=== PATIENT | male | born 1990 | race Caucasian/White ===

== ENCOUNTER → 2021-01-08 | Outpatient (CLI) | payer OTHER ==
[~2021-01-08] MED LIST: ASCO100018 PO; CHOL20002 PO; GLUC15006 PO; METH500C3 PO; MULT-658 PO; OMEG1CAP23 PO; ROSU5TAB PO; ZINC50CA PO
== END | disposition home or self-care (01) ==
LOC: STAR 07:51
PROVIDERS: ATTEND Otolaryngology
DX: Z20.822 Contact with and (suspected) exposure to COVID-19 (principal); H71.92 Unspecified cholesteatoma, left ear
CPT/HCPCS: U0003; U0005

== ENCOUNTER 2021-01-14 08:29 | Day surgery (SDC) | payer OTHER ==
[~2021-01-14] VITALS: Ht 185.4 cm; Wt 112.5 kg
[~2021-01-14 08:29] MED LIST changes: +BACITRACIN OINT 500U/GM, 15 GM ONE; +CIPROFLOXACIN DEXAMETHASONE EAR SUSP 7.5ML ONE; +EPINEPHRINE 1 MG/ML, 1ML ONE; +EPINEPHRINE TOPICAL SOLN 1 MG/ML, 30ML ONE; +LIDOCAINE/PF 1%, 30ML ONE
[2021-01-14 08:56] VITALS: BP 129/83
[2021-01-14] MEDS ORDERED: LACTATED RINGERS 1,000 ML IV SCH (09:00)
[2021-01-14] MEDS ORDERED: CHLORHEXIDINE 15 ML UDC PO ONE (09:00)
[2021-01-14] MEDS ORDERED: CHLORHEXIDINE 15 ML UDC ONE (09:03)
[2021-01-14] MEDS ORDERED: MIDAZOLAM 1 MG/ML, 2ML ONE (09:03)
[2021-01-14] MEDS ORDERED: FENTANYL PF 250 MCG/5ML ONE (09:03)
[2021-01-14] MEDS ORDERED: CEFAZOLIN 1,000 MG ONE ×2 (10:34→10:39)
[2021-01-14] MEDS ORDERED: PROPOFOL 10 MG/ML, 20ML ONE (12:19)
[2021-01-14] MEDS ORDERED: ONDANSETRON 2MG/ML, 2ML ONE (12:19)
[2021-01-14] MEDS ORDERED: ROCURONIUM 10MG/ML,5ML ONE (12:19)
[2021-01-14] MEDS ORDERED: SUCCINYLCHOLINE 20 MG/ML, 10ML ONE (12:20)
[2021-01-14] MEDS ORDERED: PROMETHAZINE 25 MG/ML, 1ML IVPush PRN (12:30)
[2021-01-14] MEDS ORDERED: ACETAMINOPHEN 325 MG TABLET PO PRN (12:30)
[2021-01-14] MEDS ORDERED: MEPERIDINE/PF 25MG/0.5ML IVPush PRN (12:30)
[2021-01-14] MEDS ORDERED: FENTANYL PF 100 MCG/2ML IV PRN (12:30)
[2021-01-14] MEDS ORDERED: LABETALOL 5MG/ML, 20ML IV PRN (12:30)
[2021-01-14] MEDS ORDERED: OXYcodone 5 MG/5 ML ORAL.SOL UDC PO PRN (12:30)
[2021-01-14] MEDS ORDERED: HYDROmorphone 1 MG/ML, 1ML INJ IVPush PRN (12:30)
[2021-01-14] MEDS ORDERED: hydrALAzine 20 MG/ML, 1ML IV PRN (12:30)
[2021-01-14] MEDS ORDERED: ONDANSETRON 2MG/ML, 2ML IVPush PRN (12:30)
== END 2021-01-14 14:00 | disposition home or self-care (01) ==
LOC: OUT 08:29
PROVIDERS: ATTEND Otolaryngology
DX: H71.22 Cholesteatoma of mastoid, left ear (principal); H71.92 Unspecified cholesteatoma, left ear; Z88.8 Allergy status to other drugs, medicaments and biological substances; Z72.89 Other problems related to lifestyle; Z79.899 Other long term (current) drug therapy
CPT/HCPCS: 21235; 69646; 88305; J0171; J0330; J0690; J2250; J2405; J2704; J3010; J7120